=== PATIENT | female | born 1975 | race Hispanic/Latino ===

== ENCOUNTER 2020-08-11 07:29 | Inpatient (IN) | payer OTHER ==
[2020-08-11 07:55] VITALS: BMI 28.9
[2020-08-11] MEDS ORDERED: Ondansetron PF 4 MG/2 ML Vial IVP PRN (08:52)
[2020-08-11] MEDS ORDERED: Ondansetron ODT 4 MG TAB PO PRN (08:52)
[2020-08-11] MEDS ORDERED: Potassium Chloride 20 MEQ TAB PO SCH (09:00)
[2020-08-11] MEDS: Lactated Ringer's 1,000 ML IV SCH ×3 (09:00→20:53)
--- NOTE | 2020-08-11 09:05 | PDOC.FPRHP ---
- History of Present Illness Chief Complaint: back pain History of Present Illness: 45 yo F direct admit from [facility] complaining of back pain since yesterday afternoon around 1300. Ms. Ruiz explains she experienced a sharp, intense pain in her right lower back that radiated towards the front and down her groin. She describes nausea, weakness, and diaphoresis associated with the pain but denies any vomiting. The pain lasted approximately 1 hour and dissipated. The same thing happened around 1700. However, this morning at 3:00am the pain returned and did not go away. At that point she presented to the [facility] where she was given fluids and her blood was drawn. Patient reports no pain at this time. She denies any fevers, chills, CP, SOB, or dysuria. She did not take anything for the pain. Patient is currently on what should be the last day of her period. She explains her periods have been irregular since her tubal ligation and her heaviest day is 01/04 where she changes a super tampon every 1.5- 2 hour. She denies any dark stool, bloody stool, headaches, lightheadedness. She endorses fatigue. ED Course: [facility]: Hgb 7.4, FOBT positive, glucose 314, Urine 4+bacteria, large blood, CT revealed slight enlargement of L ureter suggesting patient recently passed a kidney stone Received rocephin, 1L NS, 8units insulin - Allergies/Adverse Reactions Allergies Allergy/AdvReac Type Severity Reaction Status Date / Time Penicillins Allergy Verified 08/11/20 10:32 - Home Medications Medication Instructions Recorded Confirmed Type No Known 08/11/20 08/11/20 History - History PMHx: gestational diabetes PSHx: and tubal ligation in 2001 FHx: Non-contributory Social: Previous smoker, stopped 6 years ago. Smoked for a couple years. Social drinker. Denies drug use. - Review of Systems General: denies: fever/chills Eyes: denies: vision changes ENT: denies: nasal congestion Respiratory: denies: cough, congestion, shortness of breath Cardiovascular: denies: chest pain Gastrointestinal: reports: nausea, abdominal pain. denies: vomiting, diarrhea, constipation, GI bleeding Genitourinary: denies: dysuria Skin: denies: rashes Musculoskeletal: denies: arthritis/arthralgias Neurological: reports: weakness - Vital signs BP: 154/88 HR: 88 RR: 16 Tmax: 98.1 Pox: 99% on RA Wt: 72kg - Physical Exam Constitutional: NAD, awake, alert and oriented HEENT: normocephalic and atraumatic, no scleral icterus, grossly normal vision, grossly normal hearing Neck: FROM Heart: RRR, no murmurs/rubs/gallops Lungs: CTAB, no respiratory distress Abdomen: soft, non-tender, bowel sounds present, no masses/distention, other (no CVA tenderness) Musculoskeletal: normal structure, ROM grossly normal Neurological: no focal deficit Skin: no jaundice Psychiatric: normal mood and affect, good judgment and insight, intact recent and remote memory FMR H&P: Results - Labs Result Diagrams: 08/12/20 05:20 08/12/20 05:20 Lab results: [facility]: Na 133, K 3.3, Chloride 101, Bicarb 18, BUN 12, Cr 0.75, Glucose 314, WBC 11.6, H/H 7.4/26.8, Plt 405 Urine: 4+ bacteria, large blood FOBT: positive [place]: A1c 10.3 - Radiology Interpretation CT scan - abdomen Status: report reviewed by me (slight enlargement of left ureter which may be secondaryto a recently passed stone, cholelithiasis) FMR H&P: A/P - Plan 45 year old female with no significant medical history presenting for left flank pain Urinary Tract Infection 2/[address] revealed slightly enlarged left ureter suggesting recently passed stone. Clinical history is consistent with the presence and possible passing of kidney stone. Denies dysuria or increased frequency in urination. -afebrile, WBC 11.6, UA: 4+ bacteria, blood -Received rocephin, 1L NS in [facility] -UCx pending -Continue rocephin, outpatient abx selection pending culture results -LR 110mL/hr Nephrolithiasis Appears to have passed on CT. Patient is currently pain free. If pain returns, will consider Urology consult. -strain urine -see above Iron Deficiency Anemia Denies bloody or dark stool, dizziness or lightheadedness, endorses fatigue. History of anemia. -Hgb 7.4, MCV 62.1 FOBT + -recheck Hgb 7.2. Will recheck in AM and consider transfusion if <7 -iron 9, TIBC 293, % saturation 3, ferritin <2 -q2day ferrous sulfate therapy initiated -outpatient colonoscopy recommendation likely New Onset DMII History of gestation diabetes. -Glucose 314, A1c 10.3 -Received 8 units of insulin in outside ED -Will initiate metformin treatment -Will receive diabetes education Hypokalemia -K 3.3 -replaced -recheck in AM Elevated blood pressure without diagnosis of HTN 189/86 at outside ED, 154/88 upon admission -May be due to pain, continue to monitor and consider treatment if consistently elevated Diet: CC 1999 PCP: Kevyn DVT: none (Nestor 0) IVF: LR 110mL/hr Code: FULL Dispo: eLOS <48 hours pending urine culture results and outpatient antibiotic selection FMR H&P: Upper Level - Plan Date/Time: 08/11/20 0902 I, Ellie Dykes, have evaluated this patient and agree with findings/plan as outlined by purchasing internship resident. Pertinent changes/additions are listed here. 45 yo F with PMH anemia is a direct admit from [facility] complaining of left sided back pain since yesterday. Pain is sharp, intense, intermittent pain in her left lower back that radiated towards the front and down her groin. Reports N. Denies any vomiting. She denies any fevers, chills, CP, SOB, or dysuria. She denies any dark stool, bloody stool, headaches, lightheadedness. She endorses fatigue. In ED given rocephin, 1L NS, 8units insulin PE: Gen: NAD Heart: RRR, no murmurs or extra sounds Lungs: CTAB, no wheezing Abd: soft, nontender, BS+, no masses or hernias, no flank pain Ext: no edema Skin: no rashes Psych: AOx3 Urinary Tract Infection 2/[address] revealed slightly enlarged left ureter suggesting recently passed stone. Clinical history is consistent with the presence and possible passing of kidney stone. Denies dysuria or increased frequency in urination. -afebrile, WBC 11.6, UA: 4+ bacteria, blood -Received rocephin, 1L NS in [facility] ED -UCx pending -Continue rocephin, outpatient abx selection pending culture results -LR 110mL/hr Nephrolithiasis Appears to have passed on CT. Patient is currently pain free. If pain returns, will consider Urology consult. -strain urine -see above Iron Deficiency Anemia -Denies bloody or dark stool, dizziness or lightheadedness, endorses fatigue. History of anemia. -Hgb 7.4, MCV 62.1 FOBT + -recheck Hgb 7.2. Will recheck in AM and consider transfusion if <7 -iron 9, TIBC 293, % saturation 3, ferritin <2 -q2day ferrous sulfate therapy initiated -outpatient colonoscopy recommendation likely New Onset DMII - Hx GDM, A1c 10.3 -Start metformin, SSI while in the hospital -Will receive diabetes education Hypokalemia -K 3.3 -replaced, recheck in am Elevated blood pressure without diagnosis of HTN 189/86 at outside ED, 154/88 upon admission -continue to monitor, consider adding anithypertensive if persists prior to d/c Diet: CC PCP: Kevyn DVT: none (Nestor 0) IVF: LR 110mL/hr Code: FULL Attending: Kevyn Dispo: eLOS <48 hours pending urine culture results Addendum - Attending - Attending Attestation Date/Time: 08/11/20 0820 I personally evaluated the patient and discussed the management with Dr. Lester. I agree with the History, Examination, Assessment and Plan documented above with any addition or exceptions noted below. The patient was transferred from [facility] ER with Left flank pain, UTI, anemia, positive FOBT. Will continue IV antibiotics. Await urine cultures. Check iron levels. Start metformin, diabetic teaching. Monitor for pain. It appears pt has passed a kidney stone as the left ureter is dilated but no stone is seen. T meir h/h. Check A1c.
[2020-08-11 09:31] LABS: Hemoglobin A1c 10.3 % (4.0-6.0)
[2020-08-11 09:42] LABS: Iron 9 ug/dL (50-170); Iron Binding Capacity, Total 293 mcg/dL (265-497)
[2020-08-11 09:46] LABS: #Lymphocytes 1.2 thou/uL (1.20-3.40); #Monocytes 0.3 thou/uL (0.11-0.59); #Neutrophils 11.7 thou/uL (1.40-6.50); %Basophils 0.1 % (0.0-1.0); %Eosinophils 0.1 % (0.0-10.0); %Lymphocytes 8.9 % (21.0-51.0); %Monocytes 2.4 % (0.0-10.0); %Neutrophils 88.5 % (42.0-75.0); Anisocytosis MARKED = >30 cells (100X) (0-5/hpf); Hemoglobin 7.2 g/dL (12.0-16.0); Hypochromia MODERATE=16-30 cells (100X) (0-5/hpf); MDiff Complete? YES; Mean Corpuscular HGB CONC 30.2 g/dL (32.0-36.0); Mean Corpuscular Hemoglobin 18.2 pg (27.0-31.0); Mean Corpuscular Volume 60.3 fL (78.0-98.0); Microcytosis MODERATE=15-30 cells (100X) (0-5/hpf); Platelet Count 374 thou/uL (130-400); Poikilocytosis MODERATE=16-30 cells (100X) (0-5/hpf); Polychromasia SLIGHT = 2-3 cells (100X) (0-2/hpf); RBC Distribution Width 18.1 % (11.5-14.5); Red Blood Cell (RBC) Count 3.95 mill/uL (4.20-5.40); Reflex for Review?? YES; White Blood Cell (WBC) Count 13.2 thou/uL (4.8-10.8)
[2020-08-11] MEDS ORDERED: FLU VACC QS2020-21(6MOS UP)/PF 60 MCG/0.5 ML SYRINGE IM ONE (11:00)
[2020-08-11] MEDS: Ferrous Sulfate 325 MG TAB PO SCH (12:33)
[2020-08-11] MEDS ORDERED: Dextrose 50% Abboject 50 ML SYRINGE SLOW IVP PRN (16:01)
[2020-08-11] MEDS ORDERED: Dextrose 5% in Water 1,000 ML IV PRN (16:01)
[2020-08-11] MEDS: metFORMIN 500 MG TAB PO SCH (17:32)
[2020-08-11] MEDS: HumaLOG 300 UNITS/3 ML VIAL SC PRN ×2 (17:33→20:52)
--- NOTE | 2020-08-12 05:58 | PDOC.FM ---
- Subjective Subjective: No acute overnight events. c/o mild headache this AM, otherwise feeling fine. occasional sharp flank pain lasting seconds, no additional abdominal or flank pain. denies dizziness, palpitations, sob w/exertion, black or blood stools. 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 - Objective Vital Signs & Weight: Vital Signs (12 hours) Temp Pulse Resp BP Pulse Ox 08/12/20 04:00 98.2 F 79 18 148/80 H 97 08/12/20 00:00 98.5 F 73 18 151/80 H 96 08/11/20 20:58 98.2 F 08/11/20 19:51 99.0 F 88 18 156/77 H 96 Weight Weight 158.8 g I&O: 08/10/20 08/11/20 08/12/20 06:59 06:59 06:59 Intake Total 600 Balance 600 Result Diagrams: 08/12/20 05:20 08/12/20 05:20 Phys Exam - Physical Examination Constitutional: NAD HEENT: moist MMs Respiratory: clear to auscultation bilateral Cardiovascular: RRR, no significant murmur Gastrointestinal: soft, non-tender, no distention, positive bowel sounds Musculoskeletal: no edema, pulses present Neurological: non-focal, moves all 4 limbs Psychiatric: normal affect, A&O x 3 Skin: no rash Dx/Plan - Plan Plan: 45 year old female with no significant medical history presenting for left flank pain Urinary Tract Infection 2/[address] revealed slightly enlarged left ureter suggesting recently passed stone. Clinical history is consistent with the presence and possible passing of kidney stone. Denies dysuria or increased frequency in urination. -afebrile, WBC 11.6, UA: 4+ bacteria, blood -Received rocephin, 1L NS in [facility] ED -UCx pending -Continue rocephin, outpatient abx selection pending culture results -LR 110mL/hr Nephrolithiasis Appears to have passed on CT. Patient is currently pain free. If pain returns, will consider Urology consult. -strain urine -see above Iron Deficiency Anemia Denies bloody or dark stool, dizziness or lightheadedness, endorses fatigue. History of anemia. Initial Hgb 7.4, MCV 62.1 FOBT + - Hgb 6.9 this AM, transfuse 1u PRBC and recheck H/H this afternoon -iron 9, TIBC 293, % saturation 3, ferritin <2 -q2day ferrous sulfate therapy initiated -outpatient colonoscopy recommendation likely New Onset DMII History of gestation diabetes. -Glucose 314, A1c 10.3 -Received 8 units of insulin in outside ED -Will initiate metformin treatment -Will receive diabetes education - mild SSI Hypokalemia, resolved - continue to monitor Elevated blood pressure without diagnosis of HTN 189/86 at outside ED, 154/88 upon admission -May be due to pain, continue to monitor and consider treatment if consistently elevated Diet: CC 1999 PCP: Kevyn DVT: none (Nestor 0) IVF: LR 110mL/hr Code: FULL Dispo: eLOS <48 hours pending urine culture results and outpatient antibiotic selection Addendum - Attending - Attending Attestation Date/Time: 08/12/20 9221 I personally evaluated the patient and discussed the management with Dr. Collado. I agree with the History, Examination, Assessment and Plan documented above with any addition or exceptions noted below. Patient's hb dropped and she will be transfused 1 unit prbc for the iron deficiency anemia. Urine cultures are still pending. Will continue IV antibiotics. Pt is still getting "twinges" of pain in her left flank which is likely from spasms but not the severe pain that initially brought her to the ER. Adding sliding scale insulin, will continue metformin, diabetic teaching. Will pursue outpt colonoscopy
[2020-08-12 06:20] LABS: Anion Gap 10 mmol/L (10-20); BUN (Urea Nitrogen) 8 mg/dL (7.0-18.7); Calc. Creatinine Clearance 0 mL/min (70-130); Calcium 8.4 mg/dL (7.8-10.44); Carbon Dioxide 24 mmol/L (22-29); Chloride 104 mmol/L (98-107); Estimated GFR-MDRD Greater than 90; Glucose 235 mg/dL (70-105); Potassium 4.2 mmol/L (3.5-5.1); Sodium 134 mmol/L (136-145)
[2020-08-12] MEDS: HumaLOG 300 UNITS/3 ML VIAL SC PRN ×4 (06:30→21:02)
[2020-08-12 06:43] LABS: #Eosinphils 0.1 thou/uL (0.0-0.7); #Lymphocytes 1.5 thou/uL (1.20-3.40); #Monocytes 0.4 thou/uL (0.11-0.59); #Neutrophils 4.1 thou/uL (1.40-6.50); %Eosinophils 1.1 % (0.0-10.0); %Lymphocytes 25.3 % (21.0-51.0); %Monocytes 6.2 % (0.0-10.0); %Neutrophils 67.4 % (42.0-75.0); Anisocytosis SLIGHT = 6-15 cells (100X) (0-5/hpf); Hemoglobin 6.9 g/dL (12.0-16.0); Hypochromia SLIGHT = 6-15 cells (100X) (0-5/hpf); MDiff Complete? YES; Mean Corpuscular HGB CONC 30.2 g/dL (32.0-36.0); Mean Corpuscular Hemoglobin 18.3 pg (27.0-31.0); Mean Corpuscular Volume 60.6 fL (78.0-98.0); Mean Platelet Volume 5.6 fL (7.4-10.4); Microcytosis MODERATE=15-30 cells (100X) (0-5/hpf); Platelet Count 359 thou/uL (130-400); RBC Distribution Width 18.3 % (11.5-14.5); Red Blood Cell (RBC) Count 3.79 mill/uL (4.20-5.40); White Blood Cell (WBC) Count 6.1 thou/uL (4.8-10.8)
[2020-08-12] MEDS: metFORMIN 500 MG TAB PO SCH ×2 (08:12→16:55)
[2020-08-12] MEDS: cefTRIAXone\\ROCEPHIN 1 GM in Sodium Chloride 0.9% 100 ML IVPB SCH (09:23)
[2020-08-12] MEDS: Lactated Ringer's 1,000 ML IV SCH ×2 (14:00→21:04)
[2020-08-12] MEDS ORDERED: Acetaminophen 325 MG TAB PO PRN (14:09)
[2020-08-12 16:31] LABS: Hemoglobin 8.5 g/dL (12.0-16.0)
[2020-08-13] MEDS: Lactated Ringer's 1,000 ML IV SCH (05:33)
[2020-08-13] MEDS: HumaLOG 300 UNITS/3 ML VIAL SC PRN ×2 (06:32→11:37)
[2020-08-13] MEDS: metFORMIN 500 MG TAB PO SCH ×2 (08:28→16:42)
[2020-08-13 09:32] LABS: #Lymphocytes 1.2 thou/uL (1.20-3.40); #Monocytes 0.3 thou/uL (0.11-0.59); #Neutrophils 4.4 thou/uL (1.40-6.50); %Basophils 0.3 % (0.0-1.0); %Eosinophils 0.6 % (0.0-10.0); %Lymphocytes 19.7 % (21.0-51.0); %Monocytes 4.6 % (0.0-10.0); %Neutrophils 74.7 % (42.0-75.0); Hemoglobin 8.5 g/dL (12.0-16.0); Mean Corpuscular HGB CONC 30.6 g/dL (32.0-36.0); Mean Corpuscular Hemoglobin 19.6 pg (27.0-31.0); Mean Corpuscular Volume 63.9 fL (78.0-98.0); Platelet Count 363 thou/uL (130-400); RBC Distribution Width 21.2 % (11.5-14.5); Red Blood Cell (RBC) Count 4.33 mill/uL (4.20-5.40); White Blood Cell (WBC) Count 5.8 thou/uL (4.8-10.8)
[2020-08-13 09:33] LABS: MDiff Complete? YES
[2020-08-13] MEDS: Ferrous Sulfate 325 MG TAB PO SCH (11:22)
[2020-08-13] MEDS: cefTRIAXone\\ROCEPHIN 1 GM in Sodium Chloride 0.9% 100 ML IVPB SCH (11:24)
--- NOTE | 2020-08-13 14:09 | PRG ---
DATE OF SERVICE: 08/13/2020 Ms. Ruiz is a pleasant 45-year-old lady, who was admitted with a kidney stone that has likely passed. She was found to be rather profoundly anemic and also having irregular menstrual bleeding for several years. She was also recently diagnosed type 2 diabetic, which along with her obesity placed her at risk for endometrial carcinoma. I believe at some point and likely as an outpatient, she should have a transvaginal ultrasound and endometrial biopsy in addition to colonoscopy. She will be placed on oral iron with goals of replacing her to hemoglobin of at least 12 and a ferritin of at least 50. Job ID: [id number]
--- NOTE | 2020-08-13 15:10 | PDOC.FM ---
- Subjective Subjective: No acute overnight events. Patient complains of headache this AM, somewhat improved with tylenol. No vision changes, described as mild. She otherwise denies any abdominal pain or urinary symptoms. No fever or chills. No obvious bleeding. - Objective Vital Signs & Weight: Vital Signs (12 hours) Temp Pulse Resp BP Pulse Ox 08/13/20 11:59 100 08/13/20 11:00 98.5 F 68 20 147/82 H 98 08/13/20 07:29 98.2 F 80 20 160/80 H 96 08/13/20 04:36 98.5 F 78 18 163/92 H 97 Weight Weight 158.8 g I&O: 08/12/20 08/13/20 08/14/20 06:59 06:59 06:59 Intake Total 1919 2469 Balance 1919 2469 Result Diagrams: 08/13/20 08:57 08/12/20 05:20 Phys Exam - Physical Examination Constitutional: NAD HEENT: moist MMs Neck: supple Respiratory: clear to auscultation bilateral Cardiovascular: RRR, no significant murmur Gastrointestinal: soft, non-tender, no distention, positive bowel sounds Musculoskeletal: no edema, pulses present Neurological: non-focal, moves all 4 limbs Psychiatric: normal affect, A&O x 3 Skin: no rash Dx/Plan - Plan Plan: Urinary Tract Infection 2/[address] revealed slightly enlarged left ureter suggesting recently passed stone. Clinical history is consistent with the presence and possible passing of kidney stone. Denies dysuria or increased frequency in urination. -afebrile, WBC 11.6, UA: 4+ bacteria, blood - treated w/rocephin inpatient - ucx e coli barajas sensitive, will switch to omnicef - LR 110mL/hr Nephrolithiasis Appears to have passed on CT. Patient is currently pain free. If pain returns, will consider Urology consult. -strain urine -see above Iron Deficiency Anemia Denies bloody or dark stool, dizziness or lightheadedness, endorses fatigue. History of anemia. Initial Hgb 7.4, MCV 62.1 FOBT + - Hgb 6.9, transfused 1uPRBC and improved to 8.5, remains stable this AM -iron 9, TIBC 293, % saturation 3, ferritin <2 -q2day ferrous sulfate therapy initiated -outpatient colonoscopy recommendation likely - may also need POSTAL WORKER US to r/o uterine pathology given heavy menstrual bleeding - will check Hgb electrophoresis r/o thalassemia given MCV in 60s New Onset DMII History of gestation diabetes. - Glucose 314, A1c 10.3 - metformin initiated - will also start lantus 10 u Hypokalemia, resolved - continue to monitor HTN Blood pressure remained elevated throughout admission after resolution of pain. - will start lisinopril 10 mg daily - advised of possible side effects of NENA cough and angioedema - discussed sx of hypotension - advised to f/u in clinic within 1-2 weeks Diet: CC 1999 PCP: Kevyn DVT: none (Nestor 0) IVF: LR 110mL/hr Code: FULL Dispo: eLOS <48 hours pending urine culture results and outpatient antibiotic selection
[2020-08-13 15:30] VITALS: BP 155/89; TEMP 98.4
--- NOTE | 2020-08-14 11:31 | DIS ---
DATE OF ADMISSION: 08/12/2020 DATE OF DISCHARGE: 08/13/2020 YOKER: None. PROCEDURES: None. PRIMARY DIAGNOSIS: Urinary tract infection. SECONDARY DIAGNOSES: 1. Nephrolithiasis. 2. Iron deficiency anemia. 3. Type 2 diabetes, new onset. 4. Elevated blood pressure. DISCHARGE MEDICATIONS: 1. Metformin 500 mg p.o. b.i.d. 2. Lantus 10 units subcu daily. 3. Lisinopril 10 mg p.o. daily. 4. Omnicef 300 mg p.o. b.i.d. for 7 days. 5. Ferrous sulfate 325 mg p.o. q.2 days. Discontinued medications: None. HOSPITAL COURSE: This is a 45-year-old female with no known significant past medical history who presented to the ER for back pain radiating to the groin. This pain caused her to go to the ER where she was evaluated with a CT abdomen and pelvis, which revealed slight enlargement of the left ureter suggesting a recently passed kidney stone. Her lab workup in the ER was also significant for hemoglobin of 7.4, positive fecal occult blood test and elevated blood glucose greater than 300, and the urinary tract infection on UA. She was treated with Rocephin and admitted to the hospital where she continued to receive treatment with IV Rocephin until her urine cultures resulted revealing pansensitive Escherichia coli. Her hemoglobin A1c was checked and found to be 10.3, suggesting type 2 diabetes that had not been diagnosed in the past. Treatment was started with metformin today. She is also hypertensive throughout her admission. Initially this was thought to possibly be secondary to pain from her recently passed kidney stone, however, she remained hypertensive throughout her admission and began to have daily morning headaches even after her symptoms of abdominal and flank pain had resolved. She was started on lisinopril for her hypertension. She was also found to have very significant microcytic anemia. This could be due to either iron deficiency or thalassemia. During this admission, she did require transfusion of 1 unit due to hemoglobin of 6.9, q.2-day ferous sulfate therapy was initiated. An outpatient colonoscopy was recommended for this patient given her positive fecal occult blood test. She also endorses a history of heavy irregular periods, and is currently menstruating at the time of the fecal occult blood test. It is possible that her symptoms are due to heavy and irregular menstrual bleeding. Would also consider transvaginal ultrasound to rule out uterine pathology in the outpatient setting. Other possible etiology for this severe microcytic anemia is some kind of thalassemia. Hemoglobin electrophoresis was ordered during this admission, but the results are not yet available. For her diabetes, she was started on metformin and Lantus during this admission. DISPOSITION: Stable. DISCHARGE INSTRUCTIONS: 1. Location, home. 2. Diet, diabetic diet. 3. Activity, as tolerated. 4. Follow up with her PCP within 1 week to follow up on your blood pressure and your blood sugars, as well as the other tests for your iron deficiency anemia. Job ID: [id number]
== END 2020-08-13 16:46 | disposition home or self-care (01) | DRG 812 ==
LOC: T4-A 07:29 → OBSVTOIN 08-12 16:28
PROVIDERS: ADMIT Family Medicine; ATTEND Family Medicine
PROC: 30233N1 Transfusion of Nonautologous Red Blood Cells into Peripheral Vein, Percutaneous Approach (ICD-10-PCS; principal; 2020-08-12)
DX: D50.9 Iron deficiency anemia, unspecified (principal); N39.0 Urinary tract infection, site not specified; N20.0 Calculus of kidney; E11.9 Type 2 diabetes mellitus without complications; D56.9 Thalassemia, unspecified; E87.6 Hypokalemia; I10 Essential (primary) hypertension; Z88.0 Allergy status to penicillin; Z87.891 Personal history of nicotine dependence; Z98.51 Tubal ligation status
CPT/HCPCS: 36415; 36416; 36430; 80048; 82728; 83036; 83540; 83550; 85025; 85060; 86850; 86900; 86901; 96361; 96365; 96366; G0378; J0696; J3490; P9016

== ENCOUNTER 2023-08-04 09:16 | Outpatient (CLI) | payer OTHER | END 2023-08-04 09:17 | disposition home or self-care (01) | LOC: BICMAMMO 09:16 | PROVIDERS: ATTEND Family Medicine | DX: N64.89 Other specified disorders of breast (principal) | CPT/HCPCS: G0279 ==